=== PATIENT | male | born 1995 | race Caucasian/White ===

== ENCOUNTER 2016-06-22 18:51 | Emergency (ER) | payer OTHER ==
[~2016-06-22] VITALS: Ht 165.1 cm; Wt 56.5 kg
[2016-06-22 18:55] VITALS: Ht 165.1 cm; Wt 56.5 kg
--- NOTE | 2016-06-22 19:39 | ERD ---
ER Documentation Chief Complaint Date/Time DATE: 06/22/16 Chief Complaint Left axillary abscess HPI The patient is a 21-year-old male, accompanied by parents, who presents to the Emergency Department with complaint of an abscess to his left axillary region. The patient reports that several weeks ago he tried to shave his axillary regions. Approximately one week ago he began to notice an area of erythema, warmth and swelling to the left axillary area. Since Sunday, the swelling and erythema have been increasing. He denies any bleeding or spontaneous drainage from the area. Denies any restricted range of motion of the upper extremity. Denies any numbness, paresthesias or weakness. Denies fever, sweats, chills, nausea or vomiting. Denies history of similar symptoms in the past. Denies history of diabetes or immunocompromised state. ROS All systems reviewed and are negative except as per history of present illness. Medications Home Meds Active Scripts Sulfamethoxazole-Trimethoprim* (Bactrim* DS) 800-160 Mg Tab, 1 TAB PO BID for 7 Days, TAB Prov:KELIN PEREZ PA-C 06/22/16 Allergies Allergies: Coded Allergies: No Known Drug Allergies (Verified Allergy, Unknown, 06/22/16) PMhx/Soc Medical and Surgical Hx: pt denies Medical Hx, pt denies Surgical Hx History of Surgery: No Anesthesia Reaction: No Hx Neurological Disorder: No Hx Respiratory Disorders: No Hx Cardiac Disorders: No Hx Psychiatric Problems: No Hx Miscellaneous Medical Probl: No Hx Alcohol Use: No Hx Substance Use: No Hx Tobacco Use: No Physical Exam Vitals Vital Signs Date Time Temp Pulse Resp B/P Pulse Ox O2 Delivery O2 Flow Rate FiO2 06/22/16 18:55 99.2 96 20 121/74 98 Physical Exam Const: Well-developed, well-nourished, in no acute distress. Head: Atraumatic Eyes: Normal Conjunctiva ENT: Normal External Ears, Nose and Mouth. Neck: Supple. Resp: Clear to auscultation bilaterally Cardio: Regular rate and rhythm, no murmurs Skin: 2.5 cm x 2 cm red, raised, fluctuant abscess to the left axillary region. No surrounding erythema or lymphatic streaking. No crepitus. No spontaneous drainage. No bleeding. Ext: No clubbing, cyanosis, or edema. Moving all extremities. Neur: Awake and alert Psych: Cooperative. Appropriate. Results 24 hrs Current Medications Medications (Trade) Dose Ordered Sig/Cele Route PRN Reason Start Time Stop Time Status Last Admin Dose Admin Lidocaine (Xylocaine 1% (Mdv) 20 ml) 20 ml ONCE ONCE SC 06/22/16 20:00 06/22/16 20:01 DC Procedures/MDM PROCEDURE: INCISION AND DRAINAGE OF ABSCESS INDICATION: Left axillary abscess CONSENT:Consent was obtained from the patient prior to the procedure. Indications, risks, and benefits were explained at length. PROCEDURE SUMMARY: A timeout protocol was performed prior to initiating the procedure. The patient was positioned appropriately. The area was prepared and draped in the usual sterile manner. The site was adequately anesthetized with approximately 3 cc 1% lidocaine without epinephrine. The are was cleaned/ irrigated with 10% betadine solution/ NaCl. A sterile #11 blade scalpel was used to make a single linear 1 cm incision along the local skin lines and the purulent material/copious drainage of purulent discharge was expressed. The abscess was explored thoroughly and sequestered pockets were opened. Bleeding was minimal. Packing: The wound was packed with iodoform gauze The patient tolerated the procedure well without complications. The wound was dressed with sterile 4 x 4 gauze and paper tape. Standard post-procedure care was explained and return precautions were given. MEDICAL DECISION MAKING: This is a 21-year-old male patient presenting to the Emergency Department with a left axillary abscess that underwent incision and drainage. The patient tolerated the procedure well. Packing was placed. Standard post-procedure care was explained to the patient at length. At this time the patient in stable condition and therefore can be discharged home with prescription for Bactrim DS and given strict return precautions for signs of infection, uncontrollable pain, or any form of worsening or deteriorating condition. The patient is advised to complete all antibiotics as directed. He is advised to follow up with his primary medical provider in 2 days for wound check, packing removal, reevaluation and further management, or to return to the ER sooner for any new or worsening symptoms. I shared my medical decision making and plan with the patient at length and in great detail and the patient verbally understands and agrees with the plan for further observation and care as an outpatient. At the time of discharge all questions were answered. Departure Diagnosis: Primary Impression: Abscess of left axilla Condition: Stable Patient Instructions: Abscess, Antiobiotic Treatment Only, Abscess, Incision And Drainage Additional Instructions: WOUND CHECK:CONSULTE A KING MDICO EN 2 ramirez para nabeel KING HERIDA. Llame al doctor MAANA y nathanael oliverio DANYA PARA DENTRO DE 1-2 CASTANEDA.Dgale a la secretaria que nosotros le instruimos hacer esta danya.Avise o llame si king condicin se empeora antes de la danya. Regresa aqui si peor o no mejor. KELIN PEREZ PA-C Jun 22, 2016 19:39
[2016-06-22] MEDS ORDERED: BACTDS PO (20:00)
[2016-06-22] MEDS ORDERED: LIDOCAINE 1% (MDV) 20 ML INJ SC ONE (20:00)
== END 2016-06-22 20:30 | disposition home or self-care (01) ==
LOC: FTE 18:51
DX: L02.412 Cutaneous abscess of left axilla (principal)
CPT/HCPCS: 10061; Z7610

== ENCOUNTER 2016-06-24 18:02 | Emergency (ER) | payer OTHER ==
[~2016-06-24] VITALS: Ht 167.6 cm; Wt 72.0 kg
[~2016-06-24 18:02] MED LIST: BACTDS PO
[2016-06-24 18:04] VITALS: Ht 167.6 cm; Wt 72.0 kg
--- NOTE | 2016-06-24 18:46 | ERD ---
ER Documentation Chief Complaint Date/Time DATE: 06/24/16 TIME: 18:44 Chief Complaint WOUND CHECK AFTER 2 DAYS- WOUND PACKED UNDER LEFT ARMPIT HPI 21-year-old male presents here in emergency department for a wound check, had an abscess on the left armpit area, had incision and drainage done, patient has purulent discharge from the area. Pain is controlled, 3/10 scale, just touching the area. Patient denies any fever or chills. Patient denies any new symptoms. ROS All systems reviewed and are negative except as per history of present illness. Medications Home Meds Active Scripts Sulfamethoxazole-Trimethoprim* (Bactrim* DS) 800-160 Mg Tab, 1 TAB PO BID for 7 Days, TAB Prov:KELIN PEREZ PA-C 06/22/16 Allergies Allergies: Coded Allergies: No Known Drug Allergies (Verified Allergy, Unknown, 06/22/16) PMhx/Soc Medical and Surgical Hx: pt denies Medical Hx, pt denies Surgical Hx History of Surgery: No Anesthesia Reaction: No Hx Neurological Disorder: No Hx Respiratory Disorders: No Hx Cardiac Disorders: No Hx Psychiatric Problems: No Hx Miscellaneous Medical Probl: No Hx Alcohol Use: No Hx Substance Use: No Hx Tobacco Use: No FmHx Family History: No coronary disease, No diabetes, No other Physical Exam Vitals Vital Signs Date Time Temp Pulse Resp B/P Pulse Ox O2 Delivery O2 Flow Rate FiO2 06/24/16 18:04 97.4 92 18 122/83 99 Physical Exam GENERAL: The patient is well developed and appropriate for usual state of health, in no apparent distress. CHEST: Clear to auscultation bilaterally. There are no rales, wheezes or rhonchi. HEART: Regular rate and rhythm. No murmurs, clicks, rubs or gallops. No S3 or S4. ABDOMEN: Soft, nontender and nondistended. Good bowel sounds. No rebound or guarding. No gross peritonitis. No gross organomegaly or masses. No Arce sign or McBurney point tenderness. BACK: No midline or flank tenderness. EXTREMITIES: Equal pulses bilaterally. There is no peripheral clubbing, cyanosis or edema. No focal swelling or erythema. Full range of motion. Grossly neurovascularly intact. NEURO: Alert and oriented. Cranial nerves 2-12 intact. Motor strength in all 4 extremities with 5/5 strength. Sensation grossly intact. Normal speech and gait. SKIN: Abscess wound in the left armpit area healing well, draining pustular discharge, mild tenderness on palpation, no fluctuance noted. There is no apparent ecchymosis or petechia. The skin is warm and dry. HEMATOLOGIC AND LYMPHATIC: There is no evidence of excessive bruising or lymphedema. No gross cervical, axillary, or inguinal lymphadenopathy. Procedures/MDM Procedure note: After patient's verbal consent, the wound was cleaned with diluted Betadine, after cleaning the wound, the old iodoform dressing was removed, replaced with new one, tolerated procedure well, dry dressing was applied afterwards. Medical decision making: Patient has a soft tissue abscess, had incision and drainage done, wound is healing well, old dressing was removed and replaced with new one, patient was advised to follow-up in 4-5 days for reevaluation of symptoms and changing of dressing, patient was advised to return to emergency department sooner for any worsening symptoms. Departure Diagnosis: Primary Impression: Soft tissue abscess Additional Impression: Encounter for wound re-check Condition: Stable Patient Instructions: Abscess, Incision And Drainage Additional Instructions: wound check dressing change in 4 days ANITHA SIM NP Jun 24, 2016 18:46
== END 2016-06-24 18:46 | disposition home or self-care (01) ==
LOC: E/R 18:02
DX: L02.412 Cutaneous abscess of left axilla (principal)
CPT/HCPCS: 99281

== ENCOUNTER 2016-06-29 11:46 | Emergency (ER) | payer OTHER ==
[~2016-06-29] VITALS: Ht 165.1 cm; Wt 56.5 kg
[2016-06-29 11:47] VITALS: Ht 165.1 cm; Wt 56.5 kg
--- NOTE | 2016-06-29 13:36 | ERD ---
ER Documentation Chief Complaint Date/Time DATE: 06/29/16 TIME: 13:35 Chief Complaint here for wound check had left axilla abscess drain a week ago HPI 21-year-old male comes in for left axillary abscess incision and drainage wound check from 4 days ago. Patient states that he has not had any fevers or chills , the pain has completely resolved. No drainage. ROS All systems reviewed and are negative except as per history of present illness. Medications Home Meds Active Scripts Sulfamethoxazole-Trimethoprim* (Bactrim* DS) 800-160 Mg Tab, 1 TAB PO BID for 7 Days, TAB Prov:KELIN PEREZ PA-C 06/22/16 Allergies Allergies: Coded Allergies: No Known Drug Allergies (Verified Allergy, Unknown, 06/22/16) PMhx/Soc History of Surgery: No Anesthesia Reaction: No Hx Neurological Disorder: No Hx Respiratory Disorders: No Hx Cardiac Disorders: No Hx Psychiatric Problems: No Hx Miscellaneous Medical Probl: No Hx Alcohol Use: No Hx Substance Use: No Hx Tobacco Use: No Smoking Status: Never smoker Physical Exam Vitals Vital Signs Date Time Temp Pulse Resp B/P Pulse Ox O2 Delivery O2 Flow Rate FiO2 06/29/16 11:47 97.4 83 18 128/74 98 Physical Exam General: Well-developed, well-nourished. The patient appears in no acute distress. HEENT: Head is normocephalic, atraumatic. No scleral icterus. Neck: Supple. Nontender. Lungs: Clear to auscultation. Normal air movement. Heart: Regular rate and rhythm. S1 and S2 are normal. No murmurs, gallops, or rubs. Abdomen: Nondistended. Extremities: No clubbing or cyanosis. Moving extremities x 4. No weakness. Neurologic: Alert and oriented 3. No focal deficits. Normal speech and gait. Skin: 1 cm incision in the left axilla, dry and intact, packing material in place, when removed, there is no drainage. Area is soft. Procedures/MDM Wound shows no evidence of infection, foreign body, neurologic injury, vascular injury, open joint or tendon laceration. Patient appropriate for outpatient follow up. Departure Diagnosis: Primary Impression: Encounter for wound re-check Condition: Good Patient Instructions: Wound Care ESTHER CALLAHAN PA-C Jun 29, 2016 13:36
== END 2016-06-29 12:49 | disposition home or self-care (01) ==
LOC: FTE 11:46
DX: Z48.01 Encounter for change or removal of surgical wound dressing (principal)
CPT/HCPCS: 99281